=== PATIENT | female | born 1960 | race Two or more races ===

== ENCOUNTER → 2018-06-26 | Outpatient (CLI) | payer OTHER, BC | LOC: FIMAGING 11:09 | PROVIDERS: ATTEND Physician Assistant | PROC: CF1YYZZ Planar Nuclear Medicine Imaging of Hepatobiliary System and Pancreas using Other Radionuclide (ICD-10-PCS; principal; 2018-06-26) | DX: K82.8 Other specified diseases of gallbladder (principal) | CPT/HCPCS: 78227; A9537 ==

== ENCOUNTER 2018-07-28 10:39 | Day surgery (SDC) | payer OTHER, BC ==
[2018-07-28] MEDS ORDERED: ceFAZolin 2 GM/DEXTROSE 100 ML IV ONE (10:48)
[2018-07-28] MEDS ORDERED: LR 1,000 ML IV ONE (10:49)
[2018-07-28] MEDS ORDERED: BUPIVACAINE/EPI 0.25% 30 ML SDV ONE (11:51)
[2018-07-28] MEDS ORDERED: MIDAZOLAM 2 MG/2 ML VIAL IVP ONE (12:20)
--- NOTE | 2018-07-28 12:20 | PDANEPAE ---
ANE Past Medical History - Cardiovascular History Hx Hypertension: Yes Hx Arrhythmias: No Hx Chest Pain: No Hx Coronary Artery / Peripheral Vascular Disease: No Hx CHF / Valvular Disease: No Hx Palpitations: No - Pulmonary History Hx COPD: No Hx Asthma/Reactive Airway Disease: No Hx Recent Upper Respiratory Infection: No Hx Oxygen in Use at Home: No Hx Sleep Apnea: No Sleep Apnea Screening Result - Last Documented: Negative - Neurologic History Hx Cerebrovascular Accident: No Hx Seizures: No Hx Dementia: No - Endocrine History Hx Diabetes: No - Renal History Hx Renal Disorders: No - Liver History Hx Hepatic Disorders: No Hepatic History Comment: US LIVER RECENT - Neurological & Psychiatric Hx Hx Neurological and Psychiatric Disorders: No - Cancer History Hx Cancer: No - Congenital Disorder History Hx Congenital Disorders: No - GI History Hx Gastrointestinal Disorders: Yes Gastrointestinal History Comment: ABNORMAL BMS - Other Health History Other Health History: RASH SIDE OF FACE. ELEV IRON LEVELS RECENTLY - Chronic Pain History Chronic Pain: Yes (ABD R SIDE PAIN) - Surgical History Prior Surgeries: KNEE R OPEN REPAIR ANE Review of Systems Review of Systems: - Exercise capacity METS (RN): 4 METS ANE Patient History - Allergies Allergies/Adverse Reactions: DYES Allergy (Uncoded 07/17/18 16:30) HIVES, ITCHY - Home Medications Home Medications: Lisinopril 07/17/18 [Last Taken 07/28/18 08:30] - NPO status NPO Since - Liquids (Date): 07/28/18 NPO Since - Liquids (Time): 08:30 NPO Since - Solids (Date): 07/27/18 NPO Since - Solids (Time): 18:30 - Smoking Hx Smoking Status: Never smoked ANE Labs/Vital Signs - Vital Signs Blood Pressure: 141/97 Heart Rate: 82 Respiratory Rate: 18 O2 Sat (%): 96 Height: 162.56 cm Weight: 97.522 kg ANE Physical Exam - Airway Neck exam: FROM Mallampati Score: Class 1 Mouth exam: normal dental/mouth exam - ASA Status ASA Status: II ANE Anesthesia Plan Anesthesia Plan: general endotracheal anesthesia
--- NOTE | 2018-07-28 12:51 | PDHPUP ---
History & Physical Update H&P update statement: This history and physical update is based on an assessment of the patient which was completed after admission or registration (within 24 hours), but prior to the surgery/procedure. H&P update: H&P reviewed & patient examined, no change in patient's condition since H&P completed
[2018-07-28] MEDS ORDERED: PROPOFOL 200 MG/20 ML VIAL ONE (13:08)
[2018-07-28] MEDS ORDERED: fentaNYL 100 MCG/2 ML INJ ONE (13:08)
[2018-07-28] MEDS ORDERED: ROCURONIUM 50 MG/5 ML VIAL ONE (13:09)
[2018-07-28] MEDS ORDERED: METOCLOPRAMIDE 10 MG/2 ML VIAL ONE (13:12)
[2018-07-28] MEDS ORDERED: RANITIDINE 50 MG/2 ML VIAL ONE (13:12)
[2018-07-28] MEDS ORDERED: DEXAMETHASONE 4 MG/ML VIAL ONE ×3 (13:29)
[2018-07-28] MEDS ORDERED: ePHEDrine SULFATE 25 MG/5 ML SYR ONE (13:55)
[2018-07-28] MEDS ORDERED: MEPERIDINE 25 MG/0.5 ML AMP IVP PRN (14:01)
[2018-07-28] MEDS ORDERED: METOCLOPRAMIDE 10 MG/2 ML VIAL IVP PRN ×2 (14:01→14:52)
[2018-07-28] MEDS ORDERED: NALOXONE HCL 0.4 MG/ML INJ IVP PRN (14:01)
[2018-07-28] MEDS ORDERED: ALBUTEROL 3 ML DEYVIAL IH PRN (14:01)
[2018-07-28] MEDS ORDERED: ONDANSETRON 4 MG/2 ML VIAL ONE (14:01)
[2018-07-28] MEDS ORDERED: HYDROCODONE/APAP 5/325 TAB PO PRN (14:01)
[2018-07-28] MEDS ORDERED: fentaNYL 100 MCG/2 ML INJ IVP PRN (14:01)
[2018-07-28] MEDS ORDERED: HYDROmorphONE/DILAUDID 1 MG/ML INJ IVP PRN (14:01)
[2018-07-28] MEDS ORDERED: ACETAMINOPHEN 500 MG TAB PO PRN (14:01)
[2018-07-28] MEDS ORDERED: PROMETHAZINE HCL 25 MG/ML INJ IVP PRN (14:01)
[2018-07-28] MEDS ORDERED: oxyCODONE IR 5 MG TAB PO PRN (14:01)
[2018-07-28] MEDS ORDERED: ONDANSETRON 4 MG/2 ML VIAL IVP PRN ×2 (14:01→14:52)
[2018-07-28] MEDS ORDERED: DEXAMETHASONE 4 MG/ML VIAL IVP PRN (14:01)
[2018-07-28] MEDS ORDERED: LR 500 ML IV PRN (14:01)
[2018-07-28] MEDS ORDERED: SUGAMMADEX SODIUM 200 MG/2 ML VIAL IVP ONE (14:05)
--- NOTE | 2018-07-28 14:38 | POSTANESTH ---
Post Anesthetic Evaluation Cardiovascular Status: Normal, Stable Respiratory Status: Normal, Stable Level of Consciousness/Mental Status: Can Participate in Eval Pain Control: Adequate, Prn Tx Ordered Nausea/Vomiting Control: Adequate, Prn Tx Ordered Complications Possibly Related to Anesthesia: None Noted
--- NOTE | 2018-07-28 14:52 | POSTOPPROG ---
Post Op Note Date of Operation: 07/28/18 Surgeon: Mark Dai (, FACS) Pst Specialist: Elizabeth Rivera RN-FA Anesthesiologist: Lindy Monroy MD Anesthesia: GET(General Endotracheal) Pre-op Diagnosis: biliary dyskinesia/IZAGUIRRE Post-op Diagnosis: same Procedure: lap dae, myra-cut needle biopsy Findings: mild hepatic steatosis Inf/Abcess present in the surg proc area at time of surgery?: No EBL: Minimal (25 ml) Bowel Protocol: N/A Clean Closure Performed: N/A Specimen(s): gallbladder liver biopsy left medial segment
[2018-07-28] MEDS ORDERED: ONDANSETRON DISINTEGRATING 4 MG TAB PO PRN (14:57)
[2018-07-28] MEDS ORDERED: oxyCODONE IR 5 MG TAB ONE (15:17)
[2018-07-28] MEDS ORDERED: HYDROmorphONE/DILAUDID 1 MG/ML INJ ONE (15:17)
--- NOTE | 2018-07-28 15:50 | GOP ---
[f rep st] OPERATIVE REPORT DATE OF OPERATION: 07/28/2018 SURGEON: Mark Dai MD, FACS PENS AND PENCILS DIPPER: MARLEY Yan. ANESTHESIA: General endotracheal. ANESTHESIOLOGIST: Lindy Monroy MD. PREOPERATIVE DIAGNOSIS: 1. Biliary dyskinesia. 2. Nonalcoholic steatohepatitis. POSTOPERATIVE DIAGNOSIS: 1. Biliary dyskinesia. 2. Nonalcoholic steatohepatitis. PROCEDURE PERFORMED: 1. Laparoscopic cholecystectomy. 2. Core needle biopsy of liver. FINDINGS: 1. Mild fatty infiltration of the liver without enlargement or evidence of cirrhosis. 2. Mild chronic inflammation of the infundibulum of the gallbladder. ESTIMATED BLOOD LOSS: 25 cc or less. DESCRIPTION OF PROCEDURE: After informed consent was obtained, the patient was brought to the operating room and placed under general anesthesia. The abdomen was prepped and draped in the usual fashion. Before proceeding, a timeout and identification of the patient were performed. She received 2 g of Ancef prior to surgery. 0.25% Marcaine was used to infiltrate all incision sites. A longitudinal incision was made below the base of the umbilicus, and carried through the skin and subcutaneous tissues. Ventral traction was applied to the abdominal wall and a Veress needle introduced into the peritoneal cavity. Position was confirmed by saline infusion. A pneumoperitoneum was established with CO2 gas to a pressure of 15 mmHg. The Veress needle was withdrawn and replaced with a 5 mm bladeless trocar. This allowed introduction of a 30-degree 5 mm lens, and the peritoneal cavity was visualized. Additional 5 mm ports were placed in the subxiphoid position to the right of the falciform ligament, in the right upper quadrant midclavicular line, and right upper quadrant right anterior axillary line. This allowed introduction of atraumatic forceps. The gallbladder was identified below the liver edge with no adhesions. It was mildly distended. The fundus was grasped gently, elevating the liver edge. The table was positioned in reverse Trendelenburg to facilitate exposure. The infundibulum appeared mildly inflamed. It was grasped, and the peritoneum overlying the infundibulum was incised and dissected away from the structures in the triangle of Calot. The cystic artery presented anteriorly, and this was dispatched with a Harmonic scalpel allowing completion dissection of the cystic duct circumferentially where it joined the infundibulum of the gallbladder. Once the critical view had been obtained, the cystic duct was doubly Hemoclipped and divided, and the gallbladder dissected away from the liver edge with a Harmonic scalpel with minimal blood loss. Specimen was retrieved through the upper midline port where a 12 mm port had been placed. The specimen was submitted for permanent section. The left medial segment of the liver was then targeted for biopsy. There was in this same segment of the liver a small subcapsular hemangioma, which was carefully avoided and was several centimeters away from the needle biopsy site. A Delbert-Cut 18-gauge needle was passed several times into the left medial segment from the surface of the liver, and specimens were placed in a moistened Telfa sponge to be submitted for permanent section. Hemostasis was secured with capsular cautery using the Harmonic scalpel. The area was irrigated and aspirated. Hemostasis appeared secure upon completion. The subxiphoid port site was closed with a transfascial closure needle and 0 Vicryl suture under direct visualization. The pneumoperitoneum was evacuated. The remaining ports were removed. Subcutaneous tissues were closed with 3-0 Monocryl suture. Skin was closed with 4-0 Monocryl suture in a subcuticular fashion. Topical Dermabond was applied. The patient was returned to the recovery room in satisfactory condition. Needle, sponge, and instrument counts were correct. COMPLICATIONS: None. /[id number]/MODL MTDD
[2018-07-28 16:18] VITALS: BP 131/87
== END 2018-07-28 16:19 | disposition home or self-care (01) ==
LOC: FSGY 10:39
PROVIDERS: ATTEND Surgery
PROC: 0FT44ZZ Resection of Gallbladder, Percutaneous Endoscopic Approach (ICD-10-PCS; principal; 2018-07-28 13:00)
PROC: 0FB24ZX Excision of Left Lobe Liver, Percutaneous Endoscopic Approach, Diagnostic (ICD-10-PCS; principal; 2018-07-28 13:00)
DX: K82.8 Other specified diseases of gallbladder (principal); K75.81 Nonalcoholic steatohepatitis (NASH)
CPT/HCPCS: J0690; J1100; J1170; J2250; J2405; J2704; J2765; J2780; J3010